=== PATIENT | female | born 1975 | race Caucasian/White ===

== ENCOUNTER 2020-10-15 13:17 | Emergency (ER) | payer OTHER, SELFPAY ==
[2020-10-15 13:54] VITALS: BP 130/95; PULSE 81; RESP 15; TEMP 36.4; O2SAT 100
== END 2020-10-15 19:19 | disposition left against medical advice (07) ==
DX: Z53.21 Procedure and treatment not carried out due to patient leaving prior to being seen by health care provider (principal)
CPT/HCPCS: 99199

== ENCOUNTER 2020-10-16 07:11 | Emergency (ER) | payer OTHER, SELFPAY ==
[2020-10-16 07:18] VITALS: BP 156/101; PULSE 84; RESP 18; TEMP 36.6; O2SAT 100
--- NOTE | 2020-10-16 07:20 | ED.FEMALEGU ---
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 Patient states she has a tampon that has been present for 2 days that she has been unable to remove. She reports a foul odor, no bleeding, scant discharge. No pelvic pain. She denies fever or chills. No dysuria or hematuria. No nausea or vomiting. Patient does not have a current OFFICE RECEPTIONIST. She denies any diarrhea or constipation. Related Data Allergies Allergy/AdvReac Type Severity Reaction Status Date / Time No Known Allergies Allergy Verified 10/16/20 07:20 Review of Systems Review of Systems: Narrative: CONSTITUTIONAL: Denies fever, chills, or sweats. EYES: Denies visual changes, redness, or discharge. ENT: Denies rhinorrhea, congestion, sore throat, or otalgia. CARDIOVASCULAR: Denies chest pain, palpitations, or edema. RESPIRATORY: Denies cough or dyspnea. GASTROINTESTINAL: Denies abdominal pain, nausea, vomiting, or diarrhea. GENITOURINARY: Denies dysuria or hematuria. Reports retained tampon. SKIN: Denies rash or itching. MUSCULOSKELETAL: Denies back pain, joint pain, or myalgia. NEUROLOGIC: Denies headache, numbness, or weakness. [facility] Social History Social History (Updated 10/16/20 @ 07:35 by Charmaine Zhang MD) Smoking status: Current every day smoker Tobacco type: cigarettes Alcohol intake: current Drinks per week: 5 Substance use: never Gender identity (if verbalized by the patient): Female Exam Narrative: Exam Narrative: GENERAL: Awake, alert, conversant HEAD: Normocephalic, atraumatic. EYES: PERRLA and EOMI. ENT: Nares clear, no rhinorrhea or epistaxis. Mucous membranes moist. NECK: Supple. CHEST: No respiratory distress, breathing even and non labored HEART: Regular rate, sinus rhythm ABDOMEN:Non distended, non tender, no pelvic pain, no guarding : Tampon visualized within the vaginal vault, malodorous, no purulent discharge, cervix is nonfriable, no tenderness, no adnexal tenderness EXTREMITIES: Normal range of motion. No edema. SKIN: Warm, dry, no rash. NEURO:No focal deficits. Alert and oriented x3 Course Vital Signs Vital signs: Vital Signs Temperature 36.6 C 10/16/20 07:18 Pulse Rate 84 10/16/20 07:18 Respiratory Rate 18 10/16/20 07:18 Blood Pressure 156/101 H 10/16/20 07:18 Pulse Oximetry 100 10/16/20 07:18 Temperature 36.6 C 10/16/20 07:18 Pulse Rate 84 10/16/20 07:18 Respiratory Rate 18 10/16/20 07:18 Blood Pressure 156/101 H 10/16/20 07:18 Pulse Oximetry 100 10/16/20 07:18 MDM - Female Genitourinary MDM Narrative Medical decision making narrative: Patient presenting with retained tampon. Patient is afebrile, no pain on exam. No sign of toxic shock syndrome. Tampon was removed and is malodorous, but no purulent discharge from the cervix. Given concern for possible seeding, will prescribe antibiotics doxycycline and Flagyl for coverage. Patient is tolerating oral intake without nausea or vomiting so I will suspect that she will be able to tolerate these well. Also give the patient Diflucan as she says she is more prone to yeast infections. Given no systemic symptoms, I did not obtain labs or an ultrasound at this point. I did explain patient's to return if symptoms are changing or worsening. Patient then discharged home in stable condition. Differential Diagnosis Differential diagnosis: Likely urinary tract infection, bacterial vaginosis and trichomoniasis Discharge Plan Discharge Clinical Impression: Retained tampon Patient Disposition: Home, Self-Care Condition: Stable Instructions: Antibiotic Form Additional Instructions: Your retained tampon was removed
== END 2020-10-16 08:04 | disposition home or self-care (01) ==
LOC: ANHED 07:52
PROVIDERS: Emergency Provider Emergency Medicine
DX: T19.2XXA Foreign body in vulva and vagina, initial encounter (principal); F17.210 Nicotine dependence, cigarettes, uncomplicated; Y29.XXXA Contact with blunt object, undetermined intent, initial encounter
CPT/HCPCS: 99283

== ENCOUNTER 2022-04-06 09:08 | Emergency (ER) | payer OTHER, SELFPAY ==
[2022-04-06 09:10] VITALS: BP 157/96; PULSE 89; RESP 14; TEMP 36.6; O2SAT 100
[2022-04-06 09:33] LABS: Add Urine Microscopic? YES; Appearance Urine Clear (Clear); Bilirubin Urine Negative (Negative); Blood Urine Negative (Negative); Color Urine Yellow (Yellow); Glucose Urine UA Negative (Negative); Ketones Urine Negative (Negative); Leukocyte Esterase Ur Trace LEU/UL (Negative); Nitrate Urine Positive (Negative); Protein Urine Negative (Negative); Urobilinogen Urine 0.2 mg/dL (<2.0); pH Urine 6.5 (5.0-9.0)
[2022-04-06 10:08] LABS: Bacteria Urine 1+ /hpf; Mucus Urine Rare /lpf; Squamous Epithelial Cell Urine Many /hpf (Few); WBC Urine 16-20 /hpf
--- NOTE | 2022-04-06 10:17 | ED.FEMALEGU ---
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 Patient states that she is got chronic yeast infections. No concerns of STIs. Related Data Allergies Allergy/AdvReac Type Severity Reaction Status Date / Time No Known Allergies Allergy Verified 10/20/20 08:51 Review of Systems Review of Systems: CONSTITUTIONAL: Denies fever, chills, or sweats. EYES: Denies visual changes, redness, or discharge. ENT: Denies rhinorrhea, congestion, sore throat, or otalgia. CARDIOVASCULAR: Denies chest pain, palpitations, or edema. RESPIRATORY: Denies cough or dyspnea. GASTROINTESTINAL: Denies abdominal pain, nausea, vomiting, or diarrhea. GENITOURINARY: Reports dysuria and vaginal discharge SKIN: Denies rash or itching. MUSCULOSKELETAL: Denies back pain, joint pain, or myalgia. NEUROLOGIC: Denies headache, numbness, dizziness, or weakness. PSYCHIATRIC: Denies anxiety or depression. [facility] Social History Social History Smoking status: Current every day smoker Tobacco type: cigarettes Alcohol intake: current Drinks per week: 5 Substance use: never Gender identity (if verbalized by the patient): Female Exam Narrative: GENERAL: Well-appearing, well-nourished, no physical limitations, and in no acute distress. HEAD: Normocephalic, atraumatic. EYES: Conjunctivae normal, PERRLA and EOMI. CHEST: Clear to auscultation. No respiratory distress. No wheezes rales or rhonchi. HEART: Regular rate and rhythm. No murmur heard. Normal peripheral pulses. ABDOMEN: Soft, nontender, nondistended, normal active bowel sounds. : Deferred EXTREMITIES: Normal range of motion. No edema. No clubbing or cyanosis SKIN: Warm, dry, no rash. No noted wounds NEURO: No focal deficits. Alert and oriented x3. MAEW. CN's II-XI intact bilaterally, normal gait PSYCH: Cooperative. Normal mood and affect. Course Vital Signs Vital signs: Vital Signs Temperature 36.6 C 04/06/22 09:10 Pulse Rate 89 04/06/22 09:10 Respiratory Rate 14 04/06/22 09:10 Blood Pressure 157/96 H 04/06/22 09:10 Pulse Oximetry 100 04/06/22 09:10 Oxygen Delivery Room Air 04/06/22 09:10 Temperature 36.6 C 04/06/22 09:10 Pulse Rate 89 04/06/22 09:10 Respiratory Rate 14 04/06/22 09:10 Blood Pressure 157/96 H 04/06/22 09:10 Pulse Oximetry 100 04/06/22 09:10 Oxygen Delivery Room Air 04/06/22 09:10 MDM - Female Genitourinary Lab Data Labs: Lab Results 04/06/22 Range/Units 09:23 Urine Color Yellow (Yellow) Urine Appearance Clear (Clear) Urine pH 6.5 (5.0-9.0) Ur Specific [place] 1.020 (1.001-1.035) Urine Protein Negative (Negative) mg/dL Urine Glucose (UA) Negative (Negative) mg/dL Urine Ketones Negative (Negative) mg/dL Ur Blood (Man) Negative (Negative) Urine Nitrate Positive H (Negative) Urine Bilirubin Negative (Negative) Urine Urobilinogen 0.2 (<2.0) mg/dL Leukocyte Esterase Rfl Trace H (Negative) RONALDO/UL Urine RBC 3-5 H (0-2) /hpf Urine WBC 16-20 H /hpf Ur Squamous Epith Cells Many H (Few) /hpf Urine Bacteria 1+ H /hpf Urine Mucus Rare /lpf UCG Bedside Result Negative Reference Range: Negative Discharge Plan Discharge Clinical Impression: Urinary tract infection Patient Disposition: Home, Self-Care Condition: Stable Instructions: Antibiotic Form Prescriptions: New fluconazole 150 mg tablet 150 mg PO WEEKLY Qty: 2 0RF Rx Instructions: as a single dose nitrofurantoin monohyd/m-cryst [Macrobid] 100 mg capsule 100 mg PO Q12H 7 Days Qty: 14 0RF Rx Instructions: must administe
== END 2022-04-06 11:26 | disposition home or self-care (01) ==
PROVIDERS: Emergency Medicine; Emergency Provider Nurse Practitioner Family
DX: N39.0 Urinary tract infection, site not specified (principal); J44.9 Chronic obstructive pulmonary disease, unspecified; F17.210 Nicotine dependence, cigarettes, uncomplicated
CPT/HCPCS: 81001; 81025; 87086; 87088; 99283